=== PATIENT | female | born 1945 | race Caucasian/White ===

== ENCOUNTER 2019-05-07 11:45 | Observation (INO) | payer MEDICARE ==
[2019-05-07 12:52] LABS: Basophils % 0.7 % (0-1.3); Hematocrit 17.3 % (36.0-45.0); Lymphocytes % 13.4 % (15.3-44.8); MPV 8.2 fL (7.6-11.3); RBC Red Blood Cell Count 2.26 M/uL (3.86-4.86)
[2019-05-07 13:13] LABS: ALT/SGPT 17 U/L (12-78); AST/SGOT 10 U/L (15-37); Albumin 3.3 g/dL (3.4-5.0); Alkaline Phosphatase 104 U/L (45-117); BUN Blood Urea Nitrogen 21 mg/dL (7-18); Bicarbonate 24 mmol/L (21-32); Bilirubin Direct 0.1 mg/dL (0-0.2); Bilirubin Total 0.3 mg/dL (0.2-1.0); Glucose Level 151 mg/dL (74-106); Magnesium 1.7 mg/dL (1.8-2.4); NT PRO-BNP 273 pg/mL (<125); Potassium 3.9 mmol/L (3.5-5.1); Protein, Total 7.6 g/dL (6.4-8.2); Sodium Level 135 mmol/L (136-145); Troponin (Emerg Dept Use Only) < 0.02 ng/mL (0.0-0.045)
--- NOTE | 2019-05-07 13:18 | RAD REPORT ---
EXAM DESCRIPTION: RAD - Chest Single View - 05/07/2019 1:10 pm CLINICAL HISTORY: CHEST PAIN Chest pain. COMPARISON: Chest Pa And Lat (2 Views) dated 10/05/2017; CHEST PA AND LAT 2 VIEW dated 09/17/2007 FINDINGS: Portable technique limits examination quality. The lungs are emphysematous but grossly clear. The heart is mildly prominent in size. No displaced fr actures. IMPRESSION: No acute intrathoracic process suspected. Mild COPD.
[2019-05-07] MEDS ORDERED: MAGNESIUM SULFATE 1 gm IVPB 1 GM/100 ML BAG IV ONE (13:27)
[2019-05-07 13:41] LABS: RBC Red Blood Cell Count 2.21 M/uL (3.86-4.86)
[2019-05-07 13:57] LABS: Ferritin 3.9 ng/mL (8-388)
--- NOTE | 2019-05-07 14:25 | ER ---
Nurse's Notes [facility] Name: Barrett Bird Age: 73 yrs Sex: Female : 1945 Arrival Date: 05/07/2019 Time: 11:47 Bed 7 Private MD: Diagnosis: Iron deficiency anemia Presentation: 05/07 11:59 Presenting complaint: Patient states: SOB on exertion x 1 month ago. Pt denies pain. Pt aa5 appears pale in triage. Transition of care: patient was not received from another setting of care. Onset of symptoms was April 2019. Risk Assessment: Do you want to hurt yourself or someone else? Patient reports no desire to harm self or others. Initial Sepsis Screen: Does the patient meet any 2 criteria? No. Patient's initial sepsis screen is negative. Does the patient have a suspected source of infection? No. Patient's initial sepsis screen is negative. Care prior to arrival: None. 11:59 Method Of Arrival: Wheelchair aa5 11:59 Acuity: MICHELE 2 aa5 Triage Assessment: 12:11 General: Appears in no apparent distress. Respiratory: Reports shortness of breath at tw2 rest since for a month now Onset: The symptoms/episode began/occurred 1 month ago, the patient has mild shortness of breath. Historical: - Allergies: 12:00 Codeine; aa5 - PMHx: 12:00 "lazy valve"; Anxiety; Arthritis; COPD; Hyperlipidemia; Hypothyroidism; aa5 - PSHx: 12:00 Knee surgery; Hand Surgery; aa5 17:47 2 nodules removed- Right upper lung lobe removed; tw2 - Immunization history:: Adult Immunizations. - Ebola Screening: : No symptoms or risks identified at this time. - Social history:: Smoking status: Patient/guardian denies using tobacco, the patient reports quitting approximately 1.3 years ago. Screenin:03 Abuse screen: Denies threats or abuse. Nutritional screening: No deficits noted. tw2 Tuberculosis screening: No symptoms or risk factors identified. Fall Risk Secondary diagnosis (15 points). Assessment: 12:04 Pain: Denies pain. Cardiovascular: Rhythm is regular. Respiratory: Airway is patent tw2 Respiratory effort is even, unlabored, Breath sounds are clear bilaterally. 12:10 General: Appears in no apparent distress. obese, Behavior is calm, cooperative, tw2 appropriate for age. Neuro: Level of Consciousness is awake, alert, obeys commands, Oriented to person, place, time, situation. Cardiovascular: Heart tones S1 S2 Patient's skin is warm and dry. Respiratory: Airway is patent Respiratory effort is even, unlabored, Respiratory pattern is regular, tachypnea Breath sounds are clear bilaterally. GI: No signs and/or symptoms were reported involving the gastrointestinal system. Abdomen is round non-distended, obese, Bowel sounds present X 4 quads. : No signs and/or symptoms were reported regarding the genitourinary system. EENT: No signs and/or symptoms were reported regarding the EENT system. Derm: Skin is pale. Musculoskeletal: Range of motion: intact in all extremities. 12:11 Reassessment: provider at bedside at this time. tw2 12:38 Reassessment: Patient appears in no apparent distress at this time. No changes from tw2 previously documented assessment. Patient and/or family updated on plan of care and expected duration. Pain level reassessed. 13:33 Reassessment: Patient appears in no apparent distress at this time. No changes from tw2 previously documented assessment. Patient and/or family updated on plan of care and expected duration. Pain level reassessed. 14:45 Reassessment: Patient appears in no apparent distress at this time. No changes from tw2 previously documented assessment. Patient and/or family updated on plan of care and expected duration. Pain level reassessed. 15:45 Reassessment: Patient appears in no apparent distress at this time. No changes from tw2 previously documented assessment. Patient and/or family updated on plan of care and expected duration. Pain level reassessed. 15:50 Reassessment: SEE BLOOD TRANSFUSION RECORD in pts chart. tw2 16:33 Reassessment: Dr. Blanco hospitalist at bedside at this time. tw2 16:37 Reassessment: Patient appears in no apparent distress at this time. No changes from tw2 previously documented assessment. Patient and/or family updated on plan of care and expected duration. Pain level reassessed. 17:51 Reassessment: Patient appears in no apparent distress at this time. No changes from tw2 previously documented assessment. Patient and/or family updated on plan of care and expected duration. Pain level reassessed. 1 Unit of PRBC's completed at this time. report given to 2nd floor and order to transfuse 2nd Unit of PRBC's once pt is situated in floor room. Vital Signs: 12:00 BP 89 / 44; Pulse 79; Resp 18 S; Temp 97.6(TE); Pulse Ox 100% on R/A; Weight 89.81 kg aa5 (R); Height 5 ft. 5 in. (165.10 cm) (R); Pain 0/10; 12:38 BP 103 / 45; Pulse 80; Resp 20; Pulse Ox 100% on R/A; tw2 13:33 BP 98 / 85; Pulse 77; Resp 16; Pulse Ox 100% on R/A; tw2 14:45 BP 107 / 44; Pulse 74; Resp 17; Pulse Ox 100% on R/A; tw2 15:45 BP 109 / 59; Pulse 76; Resp 17; Pulse Ox 100% on R/A; tw2 16:37 BP 115 / 87; Pulse 79; Resp 17; Pulse Ox 100% on R/A; tw2 12:00 Body Mass Index 32.95 (89.81 kg, 165.10 cm) aa5 ED Course: 11:47 Patient arrived in ED. as 11:59 Triage completed. aa5 11:59 Arm band placed on. aa5 12:03 Mela Dallas, MADELINE is Primary Nurse. tw2 12:04 Bed in low position. Call light in reach. tw2 12:09 Gian Tan PA is PHCP. jr8 12:09 Lennox Marrero MD is Attending Physician. jr8 12:19 EKG done, by controls technician. reviewed by Gian PETERSON. at1 12:30 Inserted saline lock: 22 gauge in right antecubital area, using aseptic technique. tw2 ,using aseptic technique. per MADELINE Mead Blood collected. 13:10 XRAY Chest (1 view) In Process Unspecified. EDMS 13:24 Bb Add On Sent. tw2 13:24 TIBC Sent. tw2 13:24 Iron Level Sent. tw2 14:22 Donald Blanco is Hospitalizing Provider. jr8 15:46 Urine collected: clean catch specimen, cloudy, petrona colored. jb1 17:47 No provider procedures requiring assistance completed. Patient admitted, IV remains in tw2 place. Administered Medications: 13:31 Drug: Magnesium Sulfate 1 grams Route: IVPB; Infused Over: 1 hrs; Site: right tw2 antecubital; 14:32 Follow up: Response: No adverse reaction; IV Status: Completed infusion tw2 15:36 Drug: Tylenol 650 mg Route: PO; tw2 15:38 Follow up: Response: No adverse reaction tw2 15:37 Drug: Benadryl 12.5 mg Route: IVP; Site: right antecubital; tw2 15:38 Follow up: Response: No adverse reaction tw2 Outcome: 14:24 Decision to Hospitalize by Provider. jr8 17:47 Condition: stable tw2 17:47 Instructed on the need for admit. 18:10 Admitted to Med/surg accompanied by tech, via wheelchair, room 215, with chart, Report tw2 called to MADELINE Wan 18:10 Patient left the ED. tw2 Signatures: Dispatcher [employer] EDMS Albert Horan jb1 Claudette Hogan Audri, RN RN aa5 Gian Tan PA PA jr8 Niurka Nichole, staff occupational therapist EKG Tat1 Mela Dallas RN RN tw2 Corrections: (The following items were deleted from the chart) 12:04 11:59 Acuity: MICHELE 3 aa5 aa5 17:47 12:00 PSHx: 2 nodules removed- Rupper lung lobe removed; aa5 tw2
--- NOTE | 2019-05-07 14:25 | EDPHYS ---
Physician Documentation [facility] Name: Barrett Bird Age: 73 yrs Sex: Female : 1945 Arrival Date: 05/07/2019 Time: 11:47 Bed 7 Private MD: BOLIVAR Physician Lennox Marrero HPI: 05/07 12:46 This 73 yrs old Female presents to ER via Wheelchair with complaints of jr8 Shortness Of Breath - w/exertion. 12:46 The patient has shortness of breath with light activity. Onset: The symptoms/episode jr8 began/occurred gradually, 3 week(s) ago. Duration: The symptoms are intermittent. The patient's shortness of breath is aggravated by exertion, is alleviated by rest. Associated signs and symptoms: The patient has no apparent associated signs or symptoms. Severity of symptoms: At their worst the symptoms were mild in the emergency department the symptoms are unchanged. The patient has not experienced similar symptoms in the past. The patient has not recently seen a physician. 13:17 Patient stated that since she had a cold about 3 weeks ago. Started to have exertional jr8 shortness of breath with dizziness only. At rest feels completely fine. Denies any other symptoms. Came to ED today because she thought it was going to go away but never did . Historical: - Allergies: 12:00 Codeine; aa5 - PMHx: 12:00 "lazy valve"; Anxiety; Arthritis; COPD; Hyperlipidemia; Hypothyroidism; aa5 - PSHx: 12:00 Knee surgery; Hand Surgery; aa5 17:47 2 nodules removed- Right upper lung lobe removed; tw2 - Immunization history:: Adult Immunizations. - Ebola Screening: : No symptoms or risks identified at this time. - Social history:: Smoking status: Patient/guardian denies using tobacco, the patient reports quitting approximately 1.3 years ago. ROS: 13:17 Eyes: Negative for injury, pain, redness, and discharge, ENT: Negative for injury, jr8 pain, and discharge, Neck: Negative for injury, pain, and swelling, Cardiovascular: Negative for chest pain, palpitations, and edema, Abdomen/GI: Negative for abdominal pain, nausea, vomiting, diarrhea, and constipation, Back: Negative for injury and pain, MS/Extremity: Negative for injury and deformity, Skin: Negative for injury, rash, and discoloration, Neuro: Negative for headache, weakness, numbness, tingling, and seizure. 13:17 Respiratory: Positive for dyspnea on exertion, Negative for cough, hemoptysis, orthopnea, pleurisy, shortness of breath, sputum production, wheezing. Exam: 13:17 Eyes: Pupils equal round and reactive to light, extra-ocular motions intact. Lids and jr8 lashes normal. Conjunctiva and sclera are non-icteric and not injected. Cornea within normal limits. Periorbital areas with no swelling, redness, or edema. ENT: Nares patent. No nasal discharge, no septal abnormalities noted. Tympanic membranes are normal and external auditory canals are clear. Oropharynx with no redness, swelling, or masses, exudates, or evidence of obstruction, uvula midline. Mucous membranes moist. Neck: Trachea midline, no thyromegaly or masses palpated, and no cervical lymphadenopathy. Supple, full range of motion without nuchal rigidity, or vertebral point tenderness. No Meningismus. Respiratory: Lungs have equal breath sounds bilaterally, clear to auscultation and percussion. No rales, rhonchi or wheezes noted. No increased work of breathing, no retractions or nasal flaring. Abdomen/GI: Soft, non-tender, with normal bowel sounds. No distension or tympany. No guarding or rebound. No evidence of tenderness throughout. Back: No spinal tenderness. No costovertebral tenderness. Full range of motion. Skin: Warm, dry with normal turgor. Normal color with no rashes, no lesions, and no evidence of cellulitis. MS/ Extremity: Pulses equal, no cyanosis. Neurovascular intact. Full, normal range of motion. Neuro: Awake and alert, GCS 15, oriented to person, place, time, and situation. Cranial nerves II-XII grossly intact. Motor strength 5/5 in all extremities. Sensory grossly intact. Cerebellar exam normal. Normal gait. 13:17 Cardiovascular: Rate: normal, Rhythm: regular, Pulses: Pulses are 2+ in right radial artery and left radial artery. Heart sounds: murmur, systolic, grade 5 over 6, heard in the aortic area, Edema: is not appreciated, JVD: is not appreciated. Vital Signs: 12:00 BP 89 / 44; Pulse 79; Resp 18 S; Temp 97.6(TE); Pulse Ox 100% on R/A; Weight 89.81 kg aa5 (R); Height 5 ft. 5 in. (165.10 cm) (R); Pain 0/10; 12:38 BP 103 / 45; Pulse 80; Resp 20; Pulse Ox 100% on R/A; tw2 13:33 BP 98 / 85; Pulse 77; Resp 16; Pulse Ox 100% on R/A; tw2 14:45 BP 107 / 44; Pulse 74; Resp 17; Pulse Ox 100% on R/A; tw2 15:45 BP 109 / 59; Pulse 76; Resp 17; Pulse Ox 100% on R/A; tw2 16:37 BP 115 / 87; Pulse 79; Resp 17; Pulse Ox 100% on R/A; tw2 12:00 Body Mass Index 32.95 (89.81 kg, 165.10 cm) aa5 MDM: 12:15 Patient medically screened. 8 14:21 Data reviewed: vital signs, nurses notes, lab test result(s), radiologic studies, plain jr8 films, ultrasound. Data interpreted: Pulse oximetry: on room air is 100 %. Interpretation: normal. Counseling: I had a detailed discussion with the patient and/or guardian regarding: the historical points, exam findings, and any diagnostic results supporting the discharge/admit diagnosis, lab results, radiology results, the need for further work-up and treatment in the hospital. Physician consultation: Donald Blanco was called at 14:22, was contacted at 14:22, regarding admission, to the telemetry unit. consult, patient's condition, and will see patient. 05/07 12:27 Order name: Basic Metabolic Panel; Complete Time: 13:14 [facility] 05/07 12:27 Order name: CBC with Diff [facility] 05/07 12:27 Order name: LFT's; Complete Time: 13:14 [facility] 05/07 12:27 Order name: Magnesium; Complete Time: 13:14 [facility] 05/07 12:27 Order name: NT PRO-BNP; Complete Time: 13:14 [facility] 05/07 12:27 Order name: PT-INR; Complete Time: 13:31 [facility] 05/07 12:27 Order name: Troponin (emerg Dept Use Only); Complete Time: 13:14 [facility] 05/07 13:14 Order name: TS jr8 05/07 13:15 Order name: Iron Level; Complete Time: 14:15 [facility] 05/07 13:15 Order name: TIBC; Complete Time: 14:15 [facility] 05/07 13:15 Order name: Retic Count; Complete Time: 14:15 [facility] 05/07 13:17 Order name: Bb Add On gm 05/07 13:25 Order name: Occult Blood--Ancillary; Complete Time: 14:26 gm 05/07 12:27 Order name: XRAY Chest (1 view); Complete Time: 13:20 [facility] 05/07 12:27 Order name: EKG; Complete Time: 12:27 [facility] 05/07 12:27 Order name: Cardiac monitoring; Complete Time: 12:38 [facility] 05/07 12:27 Order name: EKG - Nurse/Tech; Complete Time: 12:38 [facility] 05/07 12:27 Order name: IV Saline Lock; Complete Time: 12:44 [facility] 05/07 12:27 Order name: Labs collected and sent; Complete Time: 12:44 [facility] 05/07 12:27 Order name: O2 Per Protocol; Complete Time: 12:38 [facility] 05/07 12:27 Order name: O2 Sat Monitoring; Complete Time: 12:38 [facility] 05/07 12:27 Order name: Echo w/ Doppler [facility] 05/07 14:03 Order name: Packed RBC Leukored [facility] 05/07 16:02 Order name: Urine Dipstick--Ancillary (enter results); Complete Time: 16:39 gm 05/07 16:10 Order name: Transfuse; Complete Time: 16:10 tw2 Administered Medications: 13:31 Drug: Magnesium Sulfate 1 grams Route: IVPB; Infused Over: 1 hrs; Site: right tw2 antecubital; 14:32 Follow up: Response: No adverse reaction; IV Status: Completed infusion tw2 15:36 Drug: Tylenol 650 mg Route: PO; tw2 15:38 Follow up: Response: No adverse reaction tw2 15:37 Drug: Benadryl 12.5 mg Route: IVP; Site: right antecubital; tw2 15:38 Follow up: Response: No adverse reaction tw2 Disposition: 05/08 07:53 Co-signature as Attending Physician, Lennox Marrero MD I agree with the assessment and [facility] plan of care. Disposition: 05/07/19 14:24 Hospitalization ordered by Donald Blanco for Observation. Preliminary diagnosis is Iron deficiency anemia. - Bed requested for Telemetry/MedSurg (observation). - Status is Observation. tw2 - Condition is Stable. - Problem is new. - Symptoms have improved. UTI on Admission? No Signatures: Dispatcher [employer] EDMN Lennox Marrero MD MD cha Calderon, Audri, RN RN aa5 Gian Tan PA PA jr8 Mela Dallas RN RN tw2 Kathy Nesbitt Corrections: (The following items were deleted from the chart) 05/07 13:18 13:16 FERRITIN+C.LAB.BRZ ordered. [facility] 17:38 14:24 Hospitalization Ordered by Donald Blanco for Observation. Preliminary diagnosis gm is Iron deficiency anemia. Bed requested for Telemetry/MedSurg (observation). Status is Observation. Condition is Stable. Problem is new. Symptoms have improved. UTI on Admission? No. jr8 17:47 12:00 PSHx: 2 nodules removed- Rupper lung lobe removed; aa5 tw2 18:10 17:38 05/07/2019 14:24 Hospitalization Ordered by Donald Blanco for Observation. tw2 Preliminary diagnosis is Iron deficiency anemia. Bed requested for Telemetry/MedSurg (observation). Status is Observation. Condition is Stable. Problem is new. Symptoms have improved. UTI on Admission? No. gm
[2019-05-07] MEDS ORDERED: DIPHENHYDRAMINE 50 MG/ML VIAL ONE (15:24)
[2019-05-07] MEDS ORDERED: ACETAMINOPHEN 325 MG TABLET ONE (15:24)
[2019-05-07] MEDS ORDERED: NA CHLORIDE 0.9% 500 ML ONE (15:37)
[2019-05-07 16:25] LABS: Urine Blood NEGATIVE (NEG); Urine Glucose NEGATIVE (NEG); Urine Protein NEGATIVE (NEG); Urine Specific Gravity 1.015 (1.005-1.030); Urine pH 5.5 (5.0-7.0)
--- NOTE | 2019-05-07 16:58 | P.HP ---
Certification for Inpatient Patient admitted to: Observation With expected LOS: <2 Midnights Practitioner: I am a practitioner with admitting privileges, knowledge of patient current condition, hospital course, and medical plan of care. Services: Services provided to patient in accordance with Admission requirements found in Title 42 Section 412.3 of the Code of Federal Regulations Patient History Date of Service: 05/07/19 Reason for admission: Severe anemia History of Present Illness: 73-year-old woman with a history congenital murmur, prior history of lung cancer status post lung resection presented emergency department with a complaint of easy fatigability. CBC done in the ED revealed severe anemia with a hemoglobin of 5.7 and microcytosis. Her iron level was also low. Patient denied any GI bleed or melena or hematemesis or vaginal bleed. She has undergone total hysterectomy. Patient started on 1 unit PRBC transfusion and admitted for further management of symptomatic anemia. Allergies Codeine Allergy (Uncoded 07/18/17 13:06) Unknown Home Medications: Albuterol Sulfate [Albuterol Sulfate 0.083% Neb Soln] 2.5 mg IH TID 07/18/17 Amiloride/Hydrochlorothiazide [Amiloride HCl-Hctz 5-50 mg Tab] 1 each PO DAILY 07/18/17 Aspirin [Aspirin EC 81 MG] 81 mg PO DAILY 07/18/17 Biotin 5,000 mcg PO DAILY 07/18/17 Butalb/Acetaminophen/Caffeine [Esgic 50-325-40 mg Tablet] 1 each PO DAILY Celecoxib [Celebrex] 200 mg PO TID 07/18/17 Cyclobenzaprine [Flexeril] 10 mg PO BID PRN 07/18/17 Diphenhydramine [Benadryl Tab/Cap] 25 mg PO BEDTIME 07/18/17 Docosahexanoic AC/Epa [Fish Oil 1,000 MG CAP] 1,000 mg PO BID 07/18/17 Estradiol [Estrace] 1 mg PO DAILY 07/18/17 Ferrous Sulfate [Iron] 325 mg PO DAILY 07/18/17 Fluticasone [Flonase 50mcg Nasal [place]] 2 sprays NS DAILY 07/18/17 Gabapentin [Gralise] 150 mg PO BID 07/18/17 Levothyroxine Sodium [Synthroid] 175 mcg PO DAILY 07/18/17 Loratadine [Claritin] 10 mg PO DAILY 07/18/17 Metoprolol Succinate [Toprol Xl] 100 mg PO [id number] 07/18/17 Psyllium [Metamucil] 1 pkt PO DAILY 07/18/17 Simvastatin [Zocor] 10 mg PO DAILY 07/18/17 Tramadol HCl [Tramadol HCl ER] 300 mg PO DAILY 07/18/17 Vitamin E 1,000 unit PO DAILY 07/18/17 diazePAM [Valium] 5 mg PO QID 07/18/17 - Past Medical/Surgical History -: Remote history of lung cancer status post resection -: Heart murmur -: History of Laparotomy -: MARYLOU -: Lung resection - Family History Family History: Reviewed- Non-Contributory - Social History Smoking Status: Never smoker Alcohol use: No CD- Drugs: No Place of Residence: Home Review of Systems Other: General: No fever, no malaise, no unintentional weight loss. Eyes: No eye discharge, Respiratory: No cough, no shortness of breath. CVS: No chest pain, no palpitation, no lightheadedness. GI: No abdominal pain, no nausea no vomit, no constipation, no diarrhea. Genitourinary: No dysuria, no urinary frequency, no incontinence, no hematuria. Musculoskeletal: No joint pains, or joint swelling, no gait instability. Neurology: No headache, no asymmetric, weakness, no problem with swallowing. Except as documented, all other systems reviewed and negative. Physical Examination - Physical Exam General: Alert, In no apparent distress, Oriented x3 HEENT: Normocephalic, PERRLA, Mucous membr. moist/pink Neck: Supple, JVD not distended, No Thyromegaly Respiratory: Clear to auscultation bilaterally, Normal air movement Cardiovascular: No edema, Normal pulses, Regular rate/rhythm, Normal S1 S2, No murmurs Capillary refill: <2 Seconds Gastrointestinal: Normal bowel sounds, Soft and benign, Non-distended, No tenderness Musculoskeletal: No clubbing, No swelling Integumentary: No rashes, No breakdown Neurological: Normal strength at 5/5 x4 extr, Cranial nerves 3-12 intact, Normal affect Lymphatics: No axilla or inguinal lymphadenopathy - Studies Laboratory Data (last 24 hrs) 05/07/19 12:40: PT 11.8, INR 1.00 05/07/19 12:40: WBC 7.8, Hgb 5.7 L*, Hct 17.3 L*, Plt Count 259 05/07/19 12:40: Sodium 135 L, Potassium 3.9, BUN 21 H, Creatinine 0.93, Glucose 151 H, Magnesium 1.7 L, Total Bilirubin 0.3, AST 10 L, ALT 17, Alkaline Phosphatase 104 Microbiology Data (last 24 hrs): 05/07/19 13:25 Stool Occult Blood - Final Imagings Data: Chest x-ray: No acute intrathoracic process. Assessment and Plan - Problems (Diagnosis) (1) Symptomatic anemia Current Visit: Yes Status: Acute (2) Iron deficiency Current Visit: Yes Status: Acute - Plan Suspect chronic anemia 2nd to chronic blood loss. Placed under observation. 2 units PRBC transfusion to keep her more remained greater than 7. IV iron therapy followed by oral iron therapy as outpatient. Check stool for occult blood. Avoid NSAIDs and aspirin. Discharge Plan: Home - Advance Directives Does patient have a Living Will: No Does patient have a Durable POA for Healthcare: No
--- NOTE | 2019-05-07 18:26 | EKG ---
Test Date: 2019-05-07 Test Time: 12:13:36 Traffic Rate Clerk: ERICKSON MEASUREMENT RESULTS: Intervals: Rate: 83 MS: 160 QRSD: 90 QT: 384 QTc: 451 [place]: P: 40 MS: 160 QRS: 35 T: 69 INTERPRETIVE STATEMENTS: Normal sinus rhythm Normal ECG Compared to ECG 03/27/2013 15:25:24 Myocardial infarct finding no longer present Electronically Signed On 05-07-19 18:24:52 CDT by Philip Manning
[2019-05-07] MEDS ORDERED: ONDANSETRON 4 MG/2 ML VIAL IV PRN (18:28)
[2019-05-07] MEDS ORDERED: NA CHLORIDE 0.9% 250 ML IV SCH (18:28)
[2019-05-07 19:22] LABS: Anisocytosis 2+; Blood Morphology Comment NOTED (NOT SEEN); Hypochromasia 1+; Platelet Estimate ADEQ; Polychromasia SLIGHT; Urine White Blood Cell Casts OK
[2019-05-07] MEDS: NA CHLORIDE 0.9% 1,000 ML IV SCH (19:23)
[2019-05-07 20:00] VITALS: BMI 31.2
[2019-05-07 20:49] LABS: Urine Appearance CLEAR; Urine Bilirubin NEGATIVE (NEG); Urine Blood NEGATIVE (NEG); Urine Color YELLOW; Urine Glucose NEGATIVE (NEG); Urine Protein NEGATIVE (NEG); Urine Urobilinogen 0.2 mg/dL (0.2-1.0); Urine pH 5.5 (5.0-7.0)
[2019-05-07 21:15] LABS: Urine Microscopic Reflex NO UMIC
[2019-05-08 03:43] LABS: Absolute Lymphocytes (CBC) 1.5 K/uL (0.7-4.9); Basophils % 2.4 % (0-1.3); Hematocrit 22.9 % (36.0-45.0); Lymphocytes % 17.9 % (15.3-44.8); MPV 8.3 fL (7.6-11.3); RBC Red Blood Cell Count 2.82 M/uL (3.86-4.86)
[2019-05-08 04:01] LABS: Potassium 3.9 mmol/L (3.5-5.1)
[2019-05-08] MEDS: NA CHLORIDE 0.9% 1,000 ML IV SCH (04:28)
[2019-05-08 05:58] VITALS: O2SAT 98
--- NOTE | 2019-05-08 08:20 | ECHO ---
HEIGHT: 5 ft 5 in WEIGHT: 188 lb 0 oz DATE OF STUDY: 05/07/[address]: Lennox Marrero MD 2-DIMENSIONAL: YES M.MODE: YES DOPPLER: YES COLOR FLOW: YES TDS: NO PORTABLE: NO DEFINITY: NO BUBBLE STUDY: NO DIAGNOSIS: SHORTNESS OF BREATH/ HIGH GRADE MURMUR CARDIAC HISTORY: CATHERIZATION: NO SURGERY: NO PROSTHETIC VALVE: NO PACEMAKER: NO MEASUREMENTS (cm) DIASTOLIC (NORMALS) SYSTOLIC (NORMALS) IVSd 1.3 (0.6-1.2) LA Diam 3.6 (1.9-4.0) LVEF 68% LVIDd 3.4 (3.5-5.7) LVIDs 2.1 (2.0-3.5) %FS 37% LVPWd 1.2 (0.6-1.2) Ao Diam 3.0 (2.0-3.7) 2 DIMENSIONAL ASSESSMENT: RIGHT ATRIUM: NORMAL LEFT ATRIUM: NORMAL RIGHT VENTRICLE: NORMAL LEFT VENTRICLE: LEFT VENTRICULAR HYPERTROPHY TRICUSPID VALVE: NORMAL MITRAL VALVE: NORMAL PULMONIC VALVE: NORMAL AORTIC VALVE: STENOSIS PERICARDIAL EFFUSION: NONE AORTIC ROOT: NORMAL LEFT VENTRICULAR WALL MOTION: NORMAL. DOPPLER/COLOR FLOW: MODERATE AORTIC STENOSIS. PEAK/MEAN GRADIENT 48/28mmHg. ESTIMATED AORTIC VALVE AREA 1.0 CENTIMETERS SQUARED. MILD AORTIC REGURGITATION. COMMENTS: NORMAL LEFT VENTRICULAR EJECTION FRACTION. LEFT VENTRICULAR HYPERTROPHY. MODERATE AORTIC STENOSIS. MILD AORTIC REGURGITATION. TECHNOLOGIST: LAKESHA ASHLEY
[2019-05-08] MEDS ORDERED: DIPHENHYDRAMINE 25 MG TAB/CAP PO PRN (08:49)
[2019-05-08] MEDS ORDERED: AMILORIDE PO SCH (09:00)
[2019-05-08] MEDS ORDERED: FLUTICASONE 50MCG NASAL SPRAY NAS SCH (09:00)
[2019-05-08] MEDS ORDERED: DIAZEPAM 5 MG TABLET PO SCH (09:00)
[2019-05-08] MEDS ORDERED: HOME MED 1 EA UNK (Levothyroxine Sodium [Synthroid] 175 MCG) PO SCH (09:00)
[2019-05-08] MEDS ORDERED: APREMILAST 30 MG PO SCH (09:00)
[2019-05-08] MEDS ORDERED: HOME MED 1 EA UNK (Vitamin E [Vitamin E] 1,000 UNIT) PO SCH (09:00)
[2019-05-08] MEDS ORDERED: ASPIRIN EC 81 MG TAB PO SCH (09:00)
[2019-05-08] MEDS ORDERED: TRAMADOL HCL 300 MG PO SCH (09:00)
[2019-05-08] MEDS ORDERED: [UNRECOGNIZED DRUG - OTHER] PO SCH (09:00)
[2019-05-08] MEDS ORDERED: PSYLLIUM 1 PKT PO SCH (09:00)
[2019-05-08] MEDS ORDERED: BIOTIN 5000 MCG PO SCH (09:00)
[2019-05-08] MEDS ORDERED: CYCLOBENZAPRINE 10 MG TAB PO SCH (09:00)
[2019-05-08] MEDS ORDERED: LORATADINE 10 MG TAB PO SCH (09:00)
[2019-05-08] MEDS ORDERED: HYDROCHLOROTHIAZIDE PO SCH (09:00)
[2019-05-08] MEDS ORDERED: SOD FERRIC GLUC COMPLX/SUCROSE 250 MG in NA CHLORIDE 0.9% 250 ML IV SCH (09:00)
[2019-05-08] MEDS ORDERED: POTASSIUM CL SA 10 MEQ TAB PO ONE (09:00)
[2019-05-08] MEDS ORDERED: SIMVASTATIN 10 MG PO SCH (09:00)
--- NOTE | 2019-05-08 11:00 | P.DS ---
Admission Date: 05/07/19 Discharge Date: 05/08/19 Disposition: ROUTINE DISCHARGE Discharge Condition: GOOD Reason for Admission: Severe anemia Consultations: None - Problems (1) Symptomatic anemia Current Visit: Yes Status: Acute (2) Iron deficiency Current Visit: Yes Status: Acute Brief History of Present Illness: 73-year-old woman with a history congenital murmur, prior history of lung cancer status post lung resection presented to the emergency department with a complaint of easy fatigability. CBC done in the ED revealed severe anemia with a hemoglobin of 5.7 and microcytosis. Her iron level was also low. Patient denied any GI bleed or melena or hematemesis or vaginal bleed. She has undergone total hysterectomy. Patient was started on 1 unit PRBC transfusion and admitted for further management of symptomatic anemia. Hospital Course: Patient admitted to the medical floor. She received 2 units of PRBC transfusion. Her hemoglobin was up to 7.4. She did not have any bowel movement provide stool for fecal occult blood test. She was given a dose of IV iron. She stated she feels much better. Case discussed with Dr. Rose, patient' s rn manager for plans to evaluate patient in his office either today or tomorrow. Patient is on oral iron therapy which she has been encouraged to continue. I also prescribed folic acid. She was informed to stop taking aspirin and Celecoxib until she sees her rn manager. Vital Signs/Physical Exam: Temp Pulse Resp BP Pulse Ox 97.5 F 84 18 129/63 99 05/08/19 08:00 05/08/19 08:00 05/08/19 08:00 05/08/19 08:00 05/08/19 08:00 General: Alert, In no apparent distress, Oriented x3 HEENT: Mucous membr. moist/pink Neck: Supple, JVD not distended Respiratory: Clear to auscultation bilaterally, Normal air movement Cardiovascular: No edema, Normal pulses, Regular rate/rhythm, Normal S1 S2, No murmurs Capillary refill: <2 Seconds Gastrointestinal: Normal bowel sounds, Soft and benign, Non-distended, No tenderness Musculoskeletal: No swelling Integumentary: No rashes Neurological: Normal strength at 5/5 x4 extr Laboratory Data at Discharge: WBC 8.2 K/uL (4.3-10.9) 05/08/19 03:20 Hgb 7.4 g/dL (12.0-15.0) L* 05/08/19 03:20 Hct 22.9 % (36.0-45.0) L D 05/08/19 03:20 Plt Count 222 K/uL (152-406) 05/08/19 03:20 PT 11.8 SECONDS (9.5-12.5) 05/07/19 12:40 INR 1.00 05/07/19 12:40 Sodium 136 mmol/L (136-145) 05/08/19 03:20 Potassium 3.9 mmol/L (3.5-5.1) 05/08/19 03:20 BUN 21 mg/dL (7-18) H 05/08/19 03:20 Creatinine 0.78 mg/dL (0.55-1.3) 05/08/19 03:20 Glucose 111 mg/dL (74-106) H 05/08/19 03:20 Phosphorus 3.0 mg/dL (2.5-4.9) 05/08/19 03:20 Magnesium 2.0 mg/dL (1.8-2.4) 05/08/19 03:20 Total Bilirubin 0.3 mg/dL (0.2-1.0) 05/07/19 12:40 AST 10 U/L (15-37) L 05/07/19 12:40 ALT 17 U/L (12-78) 05/07/19 12:40 Alkaline Phosphatase 104 U/L (45-117) 05/07/19 12:40 Home Medications: Amiloride/Hydrochlorothiazide [Amiloride HCl-Hctz 5-50 mg Tab] 1 each PO DAILY 07/18/17 Biotin 5,000 mcg PO DAILY 07/18/17 Butalb/Acetaminophen/Caffeine [Esgic 50-325-40 mg Tablet] 1 each PO BEDTIME Cyclobenzaprine [Flexeril*] 10 mg PO BID 07/18/17 Diphenhydramine [Benadryl*] 25 mg PO BEDTIME PRN 07/18/17 Docosahexanoic AC/Epa [Fish Oil 1,000 MG*] 1,000 mg PO DAILY AT SUPPER 07/18/17 Estradiol [Estrace] 1 mg PO DAILY AT SUPPER 07/18/17 Ferrous Sulfate [Iron] 325 mg PO TID 07/18/17 Fluticasone [Flonase 50MCG Nasal [place]*] 2 sprays NS DAILY 07/18/17 Levothyroxine Sodium [Synthroid] 175 mcg PO DAILY 07/18/17 Loratadine [Claritin*] 10 mg PO DAILY 07/18/17 Metoprolol Succinate [Toprol Xl*] 100 mg PO [id number] 07/18/17 Psyllium [Metamucil (Hydrocil)*] 1 pkt PO DAILY 07/18/17 Simvastatin [Zocor] 10 mg PO TID 07/18/17 Tramadol HCl [Tramadol HCl ER] 300 mg PO DAILY 07/18/17 Vitamin E 1,000 unit PO DAILY 07/18/17 diazePAM [Valium*] 5 mg PO QID 07/18/17 Apremilast [Otezla] 30 mg PO BID 05/07/19 Folic Acid 0.4 mg PO DAILY 30 Days #30 tablet 05/08/19 New Medications: Folic Acid 0.4 mg PO DAILY 30 Days #30 tablet Diet: AHA Activity: Ad tee Followup: Bentley Rose MD [ACTIVE - CAN ADMIT] - 1-2 Days Time spent managing pt's care (in minutes): 25
[2019-05-08 15:16] VITALS: BP 109/53; TEMP 98
[2019-05-08] MEDS ORDERED: ESTRADIOL 1 MG PO SCH (17:00)
[2019-05-08] MEDS ORDERED: DOCOSAHEXANOIC AC/EPA 1000 MG PO SCH (17:00)
[2019-05-08] MEDS ORDERED: ACETAMIN/CAFFEINE/BUTALB TAB PO SCH (21:00)
[2019-05-09] MEDS ORDERED: METOPROLOL XL 100 MG TAB PO SCH (06:00)
[2019-05-09] MEDS ORDERED: LEVOTHYROXINE SOD 0.1 MG TAB PO SCH (06:30)
[2019-05-09] MEDS ORDERED: LEVOTHYROXINE SOD 0.075 MG TAB PO SCH (06:30)
== END 2019-05-08 12:56 | disposition home or self-care (01) ==
LOC: ER 11:45 → ERHOLD 17:02 → 2ND 18:07
PROVIDERS: ADMIT Internal Medicine; ATTEND Internal Medicine
DX: D50.9 Iron deficiency anemia, unspecified (principal); Z85.118 Personal history of other malignant neoplasm of bronchus and lung
CPT/HCPCS: 96365; 36430; 93005; 93306; 85025 ×2; 80048 ×2; 36415; 86900; 83735 ×2; 86850; 84100; 85610; 85044; 86901; 80076; 82272; 81003 ×2; 84484; 82728; 83540; 83880; 84466; 71045; 96375; 99285; J1200; J3475; J2916; G0378 ×2; P9016 ×2; J7030 ×3; J7040

== ENCOUNTER 2019-05-30 13:08 | Observation (INO) | payer MEDICARE ==
--- NOTE | 2019-05-30 13:59 | RAD REPORT ---
EXAM DESCRIPTION: Claire Single View05/30/2019 1:50 pm CLINICAL HISTORY: Shortness of breath COMPARISON: May 07, 2019 FINDINGS: Lungs are mildly hyperaerated. The lungs appear clear of acute infiltrate. The heart is normal size IMPRESSION: No acute abnormalities displayed
[2019-05-30 15:15] LABS: Absolute Lymphocytes (CBC) 1.8 K/uL (0.7-4.9); Basophils % 1.2 % (0-1.3); Hematocrit 18.7 % (36.0-45.0); Lymphocytes % 13.6 % (15.3-44.8); MPV 8.4 fL (7.6-11.3); RBC Red Blood Cell Count 2.27 M/uL (3.86-4.86)
[2019-05-30 15:31] LABS: Potassium 4.2 mmol/L (3.5-5.1)
[2019-05-30 15:34] LABS: Anisocytosis 1+; Blood Morphology Comment NOTED (NOT SEEN); Platelet Estimate INCR; Platelets, Giant PRESENT; Urine White Blood Cell Casts OK
--- NOTE | 2019-05-30 15:47 | EKG ---
Test Date: 2019-05-30 Test Time: 13:46:04 Nonprofit Director: JIM MEASUREMENT RESULTS: Intervals: Rate: 85 DE: 148 QRSD: 94 QT: 398 QTc: 473 [place]: P: 32 DE: 148 QRS: 24 T: 64 INTERPRETIVE STATEMENTS: Normal sinus rhythm Normal ECG Compared to ECG 05/07/2019 12:13:36 No significant changes Electronically Signed On 05-30-19 15:46:46 CDT by Philip Manning
--- NOTE | 2019-05-30 16:05 | ER ---
Nurse's Notes [facility] Name: Barrett Bird Age: 73 yrs Sex: Female : 1945 Arrival Date: 05/30/2019 Time: 13:10 Bed 8 Private MD: Clark Carey E Diagnosis: Dyspnea, unspecified;Symptomatic anemia;Iron deficiency anemia Presentation: 05/30 13:16 Presenting complaint: Patient states: I have MOLLY and a few weeks ago needed a la1 transfusion. I feel that way again now. Transition of care: patient was not received from another setting of care. Onset of symptoms was May 30, 2019. Risk Assessment: Do you want to hurt yourself or someone else? Patient reports no desire to harm self or others. Initial Sepsis Screen: Does the patient meet any 2 criteria? No. Patient's initial sepsis screen is negative. Does the patient have a suspected source of infection? No. Patient's initial sepsis screen is negative. Care prior to arrival: None. 13:16 Method Of Arrival: Wheelchair la1 13:16 Acuity: MICHELE 3 la1 Historical: - Allergies: 13:17 Codeine; la1 13:17 GABAPENTIN; la1 13:17 Iodinated Contrast Media - IV Dye; la1 - PMHx: 13:17 "lazy valve"; Anxiety; Arthritis; COPD; Hyperlipidemia; Hypothyroidism; la1 - Immunization history:: Adult Immunizations up to date. - Social history:: Smoking status: Patient/guardian denies using tobacco. - Ebola Screening: : No symptoms or risks identified at this time. - Family history:: not pertinent. - Hospitalizations: : No recent hospitalization is reported. Screenin:30 Abuse screen: Denies threats or abuse. Denies injuries from another. Nutritional sg screening: No deficits noted. Tuberculosis screening: No symptoms or risk factors identified. Never had TB. Fall Risk None identified. Assessment: 13:30 General: Appears in no apparent distress. well groomed, well developed, well nourished, sg Behavior is calm, cooperative, appropriate for age. Pain: Denies pain. Neuro: Level of Consciousness is awake, alert, obeys commands, Oriented to person, place, time, Moves all extremities. Gait is steady, Speech is normal, Facial symmetry appears normal. Cardiovascular: Patient's skin is warm and dry. Chest pain is denied. Cardiovascular: Heart tones S1 S2. Respiratory: Airway is patent Respiratory effort is even, unlabored, Respiratory pattern is regular, symmetrical. GI: Abdomen is flat, non-distended. : No signs and/or symptoms were reported regarding the genitourinary system. EENT: No signs and/or symptoms were reported regarding the EENT system. Derm: Bruising that is brown, green, yellow, on right arm and left arm Reports bruising that has occurred for several years. Musculoskeletal: Circulation, motion, and sensation intact. Range of motion: intact in all extremities, Swelling absent. 15:20 Reassessment: Patient appears in no apparent distress at this time. "my stomach says it sg is getting to be that time, time to eat." pt instructed to remain NPO until notified, pt states understanding. 16:30 Reassessment: Patient appears in no apparent distress at this time. No changes from 7 previously documented assessment. Patient and/or family updated on plan of care and expected duration. Pain level reassessed. Patient is alert, oriented x 3, equal unlabored respirations, skin warm/dry/pink. 17:30 Reassessment: Patient appears in no apparent distress at this time. Patient and/or jl7 family updated on plan of care and expected duration. Pain level reassessed. Patient is alert, oriented x 3, equal unlabored respirations, skin warm/dry/pink. 18:30 Reassessment: Patient appears in no apparent distress at this time. No changes from 7 previously documented assessment. Patient and/or family updated on plan of care and expected duration. Pain level reassessed. Patient is alert, oriented x 3, equal unlabored respirations, skin warm/dry/pink. 19:15 Reassessment: Patient appears in no apparent distress at this time. Neuro: Level of lp1 Consciousness is awake, alert, obeys commands, Oriented to person, place, time, situation. Cardiovascular: Patient's skin is warm and dry. Respiratory: Respiratory effort is even. Derm: Skin is intact, Skin is dry, Skin is pale. Musculoskeletal: No deficits noted. 05/31 16:30 Respiratory: mg2 Vital Signs: 05/30 13:18 BP 100 / 50; Pulse 86; Resp 16; Pulse Ox 98% on R/A; la1 16:30 BP 126 / 72; Pulse 82; Resp 18; Temp 97.9; Pulse Ox 99% on R/A; Pain 0/10; sg 19:15 BP 125 / 70; Pulse 87; Resp 20; Temp 98(O); Pulse Ox 100% on R/A; Pain 0/10; lp1 ED Course: 13:10 Patient arrived in ED. as 13:10 Clark Carey MD is Private Physician. as 13:17 Triage completed. la1 13:17 Arm band placed on right wrist. la1 13:20 Noe Hi MD is Attending Physician. rn 13:25 Atilio Little, RN is Primary Nurse. mg2 13:26 Primary Nurse role handed off by Atilio Little, MADELINE sg 13:26 Elvis Vasquez RN is Primary Nurse. sg 13:30 Patient has correct armband on for positive identification. Placed in gown. Bed in low jl7 position. Call light in reach. Side rails up X 1. paper finisher on. Pulse ox on. NIBP on. 13:30 Warm blanket given. jl7 13:48 XRAY Chest (1 view) In Process Unspecified. EDMS 14:30 inside lab contacted for a blood draw assist. Inserted saline lock: 22 gauge in right sg antecubital area, using aseptic technique. 14:32 EKG done, by management technician. reviewed by Noe Hi MD. 3 16:04 Jamison Quarles DO is Hospitalizing Provider. rn 19:10 No provider procedures requiring assistance completed. Patient admitted, IV remains in lp1 place. Administered Medications: No medications were administered Outcome: 16:04 Decision to Hospitalize by Provider. rn 19:15 Condition: stable lp1 19:15 Instructed on the need for admit. 19:21 Admitted to Tele accompanied by tech, via wheelchair, room 403, with chart, Report lp1 called to MADELINE Farley 19:35 Patient left the ED. lp1 Signatures: Dispatcher [employer] EDMS Elvis Vasquez, Claudette Peña RN, Roman, MD MD rn Pena, Laura, RN RN lp1 Eric Crandall RN RN la1 Veda Hein RN RN hb Leal, Jahala, RN RN jl7 Atilio Little RN RN [facility] Estephania Sage 3 Corrections: (The following items were deleted from the chart) 19:15 17:59 Patient left the ED. hb jl7 19:55 19:55 Patient left the ED. lp1 lp1
--- NOTE | 2019-05-30 16:05 | EDPHYS ---
Physician Documentation [facility] Name: Barrett Bird Age: 73 yrs Sex: Female : 1945 Arrival Date: 05/30/2019 Time: 13:10 Bed 8 Private MD: Clark Carey E ED Physician Noe Hi HPI: 05/30 14:20 This 73 yrs old Female presents to ER via Wheelchair with complaints of rn Shortness Of Breath. 14:20 The patient has shortness of breath with light activity. Onset: The symptoms/episode rn began/occurred 1 week(s) ago. Duration: The symptoms are continuous. The patient's shortness of breath is aggravated by exertion, light activity, talking, walking. Severity of symptoms: At their worst the symptoms were moderate in the emergency department the symptoms are unchanged. The patient has experienced a previous episode. The patient has been recently been admitted at [facility]. Reports dyspnea on exertion, weakness, fatigue. Had similar presentation a few weeks ago, admitted for iron deficiency anemia. Had 2 unit transfusion. States felt better, now same symptoms coming back. No previous blood transfusions before last admission. Denies location of bleeding, and had neg w/u including colonoscopy. . Historical: - Allergies: 13:17 Codeine; la1 13:17 GABAPENTIN; la1 13:17 Iodinated Contrast Media - IV Dye; la1 - PMHx: 13:17 "lazy valve"; Anxiety; Arthritis; COPD; Hyperlipidemia; Hypothyroidism; la1 - Immunization history:: Adult Immunizations up to date. - Social history:: Smoking status: Patient/guardian denies using tobacco. - Ebola Screening: : No symptoms or risks identified at this time. - Family history:: not pertinent. - Hospitalizations: : No recent hospitalization is reported. ROS: 14:20 Constitutional: Negative for fever, chills, and weight loss, Eyes: Negative for injury, rn pain, redness, and discharge, Neck: Negative for injury, pain, and swelling, Cardiovascular: Negative for chest pain, palpitations, and edema, Respiratory: Negative for pleuritic chest pain Abdomen/GI: Negative for abdominal pain, nausea, vomiting, diarrhea, and constipation, Back: Negative for injury and pain, : Negative for injury, bleeding, discharge, and swelling, MS/Extremity: Negative for injury and deformity, Skin: Negative for injury, rash, and discoloration, Neuro: Negative for headache, numbness, tingling, and seizure. Exam: 14:20 Constitutional: This is a well developed, well nourished patient who is awake, alert, rn and in no acute distress. Sitting upright, slightly pale. Head/Face: Normocephalic, atraumatic. Eyes: Pupils equal round and reactive to light, extra-ocular motions intact. Lids and lashes normal. Conjunctiva and sclera are non-icteric and not injected. Cornea within normal limits. Periorbital areas with no swelling, redness, or edema. ENT: MMM Cardiovascular: Regular rate and rhythm, + systolic murmur that radiates to back. Respiratory: Clear bilatera breath sounds. No increased work of breathing, no retractions or nasal flaring. Abdomen/GI: Soft, non-tender. No evidence of tenderness throughout. MS/ Extremity: Pulses equal, no cyanosis. Neuro: Awake and alert, GCS 15, oriented to person, place, time, and situation. Cranial nerves II-XII grossly intact. Motor strength 5/5 in all extremities. Sensory grossly intact. 14:41 ECG was reviewed by the Attending Physician. rn Vital Signs: 13:18 BP 100 / 50; Pulse 86; Resp 16; Pulse Ox 98% on R/A; la1 16:30 BP 126 / 72; Pulse 82; Resp 18; Temp 97.9; Pulse Ox 99% on R/A; Pain 0/10; sg 19:15 BP 125 / 70; Pulse 87; Resp 20; Temp 98(O); Pulse Ox 100% on R/A; Pain 0/10; lp1 MDM: 13:20 Patient medically screened. rn 16:02 Differential diagnosis: Anemia Chronic Obstructive Pulmonary Disease. Data reviewed: rn vital signs, nurses notes, lab test result(s), EKG, and as a result, I will admit patient. Counseling: I had a detailed discussion with the patient and/or guardian regarding: the historical points, exam findings, and any diagnostic results supporting the discharge/admit diagnosis, lab results, the need for further work-up and treatment in the hospital. Admission orders: after a detailed discussion of the patient's condition and case, the admit orders are written by me. ED course: Pt back down to hemoglobin 5.7, no active bleeding, will transfuse again given symptomatic, and decrease over last few weeks again. Patient with COPD and then anemia on top of that. . 05/30 13:36 Order name: CBC with Diff; Complete Time: 15:35 rn 05/30 13:36 Order name: Basic Metabolic Panel; Complete Time: 15:35 rn 05/30 13:36 Order name: IV Start; Complete Time: 16:02 rn 05/30 13:36 Order name: XRAY Chest (1 view); Complete Time: 14:07 rn 05/30 13:36 Order name: EKG; Complete Time: 13:37 rn 05/30 15:35 Order name: CBC Smear Scan; Complete Time: 15:35 EDMS 05/30 13:36 Order name: EKG - Nurse/Tech; Complete Time: 16:44 rn EC:41 Rate is 85 beats/min. Rhythm is regular. QRS [place] is Normal. [place] interval is normal. QRS rn interval is normal. QT interval is normal. No Q waves. T waves are Normal. No ST changes noted. Clinical impression: Normal ECG. Interpreted by me. Reviewed by me. Administered Medications: No medications were administered Disposition: 05/30/19 16:04 Hospitalization ordered by Jamison Quarles for Observation. Preliminary diagnosis are Dyspnea, unspecified, Symptomatic anemia, Iron deficiency anemia. - Bed requested for Telemetry/MedSurg (observation). - Status is Observation. lp1 - Condition is Stable. - Problem is an ongoing problem. - Symptoms are unchanged. UTI on Admission? No Signatures: Dispatcher [employer] EDDC Leigh Ann Lee RN RN dw Nieto, Roman, MD MD rn Pena, Laura, RN RN lp1 Eric Crandall RN RN la1 Veda Hein RN RN hb Corrections: (The following items were deleted from the chart) 17:59 16:04 Hospitalization Ordered by Jamison Quarles DO for Observation. Preliminary hb diagnosis is Dyspnea, unspecified; Symptomatic anemia; Iron deficiency anemia. Bed requested for Telemetry/MedSurg (observation). Status is Observation. Condition is Stable. Problem is an ongoing problem. Symptoms are unchanged. UTI on Admission? No. rn 18:30 17:59 05/30/2019 16:04 Hospitalization Ordered by Jamison Quarles DO for Observation. dw Preliminary diagnosis is Dyspnea, unspecified; Symptomatic anemia; Iron deficiency anemia. Bed requested for Telemetry/MedSurg (observation). Status is Observation. Condition is Stable. Problem is an ongoing problem. Symptoms are unchanged. UTI on Admission? No. hb 19:55 18:30 05/30/2019 16:04 Hospitalization Ordered by Jamison Quarles DO for Observation. lp1 Preliminary diagnosis is Dyspnea, unspecified; Symptomatic anemia; Iron deficiency anemia. Bed requested for Telemetry/MedSurg (observation). Status is Observation. Condition is Stable. Problem is an ongoing problem. Symptoms are unchanged. UTI on Admission? No. dw
--- NOTE | 2019-05-30 17:09 | P.HP ---
Certification for Inpatient Patient admitted to: Observation With expected LOS: <2 Midnights Patient will require the following post-hospital care: None Practitioner: I am a practitioner with admitting privileges, knowledge of patient current condition, hospital course, and medical plan of care. Services: Services provided to patient in accordance with Admission requirements found in Title 42 Section 412.3 of the Code of Federal Regulations Patient History Date of Service: 05/30/19 Primary Care Provider: Dr. Carey; Pulmonary-Dr. Loera Reason for admission: Shortness of breath History of Present Illness: 73-year-old female presented to the emergency room with shortness of breath. Patient with history of COPD, iron and B12 deficiency, prior lung cancer with lobectomy, and aortic stenosis. Patient presented to emergency room with increasing shortness of breath. Patient was actually seen about a month ago and admitted for symptomatic anemia. Iron and B12 deficiency was noted. Hemoglobin at that time was 5.7. The received 2 units of packed red blood cells. Hemoglobin improved to 7.4. She was discharged at that time. It was recommended at that time to discontinue aspirin and Celebrex. She was to follow up with her Gi specialist. She had a colonscopy in the past which showed colon polyps. She has not had any EGD. Today the shortness of breath worsened. It would happen at rest and with exertion. She was also very tired. She denied any fever, chills, coughing up of blood. She denied any hemoptysis or melena. Denied any nausea, vomiting. In the ER vital signs were stable. She did appear pale. Hemoglobin 5.7. White count 13.2, platelet count of 409. Sodium 134, potassium 4.2, BUN 23, creatinine 0.89 with a GFR 62. Chest x-ray unremarkable. Patient admitted for further evaluation and treatment. When I saw the patient in the ER, she was without any significant shortness of breath. Room-air saturations within normal range. Allergies Codeine Allergy (Uncoded 07/18/17 13:06) Unknown Home medications list reviewed: Yes Home Medications: Amiloride/Hydrochlorothiazide [Amiloride HCl-Hctz 5-50 mg Tab] 1 each PO DAILY 07/18/17 Biotin 5,000 mcg PO DAILY 07/18/17 Butalb/Acetaminophen/Caffeine [Esgic 50-325-40 mg Tablet] 1 each PO BEDTIME Cyclobenzaprine [Flexeril*] 10 mg PO BID 07/18/17 Diphenhydramine [Benadryl*] 25 mg PO BEDTIME PRN 07/18/17 Docosahexanoic AC/Epa [Fish Oil 1,000 MG*] 1,000 mg PO DAILY AT SUPPER 07/18/17 Estradiol [Estrace] 1 mg PO DAILY AT SUPPER 07/18/17 Ferrous Sulfate [Iron] 325 mg PO TID 07/18/17 Fluticasone [Flonase 50MCG Nasal [place]*] 2 sprays NS DAILY 07/18/17 Levothyroxine Sodium [Synthroid] 175 mcg PO DAILY 07/18/17 Loratadine [Claritin*] 10 mg PO DAILY 07/18/17 Metoprolol Succinate [Toprol Xl*] 100 mg PO [id number] 07/18/17 Psyllium [Metamucil (Hydrocil)*] 1 pkt PO DAILY 07/18/17 Simvastatin [Zocor] 10 mg PO TID 07/18/17 Tramadol HCl [Tramadol HCl ER] 300 mg PO DAILY 07/18/17 Vitamin E 1,000 unit PO DAILY 07/18/17 diazePAM [Valium*] 5 mg PO QID 07/18/17 Apremilast [Otezla] 30 mg PO BID 05/07/19 Folic Acid 0.4 mg PO DAILY 30 Days #30 tablet 05/08/19 - Past Medical/Surgical History Diabetic: No -: Remote history of lung cancer status post resection -: Moderate aortic stenosis -: Chronic iron and B12 deficiency anemia -: COPD -: History of Laparotomy -: Appendectomy -: Right lobectomy for lung cancer -: Total hysterectomy Psychosocial/ Personal History: Patient lives at home. - Family History Father -: Heart disease, Blood disorders Mother -: Lung disease - Social History Smoking Status: Former smoker Alcohol use: No CD- Drugs: No Caffeine use: Yes Place of Residence: Home Review of Systems General: Weakness, Malaise, As per HPI Eyes: Unremarkable ENT: Unremarkable Respiratory: Shortness of Breath, SOB with Excertion, As per HPI Cardiovascular: Unremarkable Gastrointestinal: Unremarkable Genitourinary: Unremarkable Musculoskeletal: Unremarkable Integumentary: Unremarkable Neurological: Weakness, As per HPI Lymphatics: Unremarkable Physical Examination - Physical Exam General: Alert, In no apparent distress, Oriented x3, Cooperative, Other ( Patient appears pale) HEENT: Atraumatic, Normocephalic, Mucous membr. moist/pink Neck: Supple, No Thyromegaly Respiratory: Clear to auscultation bilaterally, Normal air movement Cardiovascular: Normal pulses, Regular rate/rhythm Gastrointestinal: Normal bowel sounds, Soft and benign, Non-distended, No ascites, No tenderness, No masses, No rebound, No guarding Musculoskeletal: No erythema, No tenderness, No warmth Integumentary: No tenderness/swelling, No erythema, No warmth, No cyanosis Neurological: Normal speech, Normal strength at 5/5 x4 extr, Normal tone, Normal affect - Studies Laboratory Data (last 24 hrs) 05/30/19 14:57: Sodium 134 L, Potassium 4.2, BUN 23 H, Creatinine 0.89, Glucose 114 H 05/30/19 14:57: WBC 13.2 H, Hgb 5.7 L*, Hct 18.7 L*, Plt Count 409 H Assessment and Plan - Plan Impression Shortness of breath secondary to acute on chronic anemia with iron and B12 deficiency COPD GERD Moderate aortic stenosis History of lung cancer status post lobectomy Plan: Shortness of breath secondary to acute on chronic anemia with iron and B12 deficiency: Patient will be admitted for further evaluation and treatment. Will transfuse 2 units of packed red blood cells. Will provide Lasix after each unit. Will maintain hemoglobin above 7.5. Will monitor closely. Recheck hemoglobin after transfusion. Anticipate discharge tomorrow if clinically stable. Case discussed with her GI specialist. If stable for discharge will plan for EGD on Sunday as an outpatient. Patient has had colonoscopy in the past showing colon polyps. No active GI bleeding at this time. Will send peripheral smear to further evaluate. Patient likely requires IV iron and IM B12 injections in the future. Will continue to monitor closely. DVT prophylaxis-SCD. Anticipate discharge tomorrow. COPD: Continue with her COPD medication. GERD: Will provide PPI. Moderate aortic stenosis: Will provide Lasix after each unit of blood. Will recommend cardiology evaluation as an outpatient to further monitor and address. History of lung cancer status post lobectomy: This is currently stable this time. Case discussed with her hand model. Discharge Plan: Home Plan to discharge in: 24 Hours - Advance Directives Does patient have a Living Will: No Does patient have a Durable POA for Healthcare: No - Code Status/Comfort Care Code Status Assessed: Yes (Patient is full code) Time Spent Managing Pts Care (In Minutes): 55
[2019-05-30] MEDS ORDERED: IPRATROPIUM BROM 0.5MG/2.5ML NEB PRN (19:54)
[2019-05-30] MEDS ORDERED: CYANOCOBALAMIN 1000MCG/ML INJ IM ONE (19:54)
[2019-05-30] MEDS ORDERED: ONDANSETRON 4 MG/2 ML VIAL IV PRN (19:54)
[2019-05-30] MEDS ORDERED: ACETAMINOPHEN 500 MG TAB PO PRN (19:54)
[2019-05-30] MEDS ORDERED: ALBUTEROL 2.5 MG/3 ML NEB SOL NEB PRN (19:54)
[2019-05-30] MEDS ORDERED: ARFORMOTEROL TARTRATE 15 MCG/2 ML VIAL.NEB NEB SCH (20:00)
[2019-05-30] MEDS ORDERED: NA CHLORIDE 0.9% 250 ML ONE (21:53)
[2019-05-30 22:53] LABS: Urine Appearance CLEAR; Urine Bilirubin NEGATIVE (NEG); Urine Blood NEGATIVE (NEG); Urine Color YELLOW; Urine Glucose NEGATIVE (NEG); Urine Protein NEGATIVE (NEG); Urine Urobilinogen 0.2 mg/dL (0.2-1.0)
[2019-05-30 23:01] LABS: Urine Microscopic Reflex NO UMIC
[2019-05-31] MEDS: LEVALBUTEROL 1.25 MG/3 ML NEB NEB SCH ×3 (01:21→14:00)
[2019-05-31] MEDS ORDERED: ALBUTEROL 2.5 MG/3 ML NEB SOL NEB SCH (02:00)
[2019-05-31 02:56] VITALS: BMI 31.1
[2019-05-31] MEDS ORDERED: NA CHLORIDE 0.9% 250 ML ONE (04:51)
[2019-05-31] MEDS: FUROSEMIDE 20 MG/ 2ML VIAL IV PRN ×2 (06:24→08:14)
[2019-05-31] MEDS ORDERED: PANTOPRAZOLE 40MG TABLET PO SCH (06:30)
[2019-05-31 07:01] LABS: Magnesium 1.9 mg/dL (1.8-2.4); Potassium 3.3 mmol/L (3.5-5.1)
[2019-05-31 07:08] LABS: Absolute Lymphocytes (CBC) 1.9 K/uL (0.7-4.9); Hematocrit 21.2 % (36.0-45.0); MPV 8.6 fL (7.6-11.3); RBC Red Blood Cell Count 2.59 M/uL (3.86-4.86)
[2019-05-31] MEDS ORDERED: CYANOCOBALAMIN 1,000 MCG TAB PO SCH (09:00)
--- NOTE | 2019-05-31 10:16 | P.DS ---
Admission Date: 05/30/19 Discharge Date: 05/31/19 Primary Care Provider: Dr. Carey; Pulmonary-Dr. Loera Disposition: ROUTINE DISCHARGE Discharge Condition: GOOD Reason for Admission: Shortness of breath Consultations: none Procedures: CXR: COMPARISON: May 07, 2019 FINDINGS: Lungs are mildly hyperaerated. The lungs appear clear of acute infiltrate. The heart is normal size IMPRESSION: No acute abnormalities displayed Previous ECHO: EF 68% LEFT VENTRICULAR WALL MOTION: NORMAL. DOPPLER/COLOR FLOW: MODERATE AORTIC STENOSIS. PEAK/MEAN GRADIENT 48/28mmHg. ESTIMATED AORTIC VALVE AREA 1.0 CENTIMETERS SQUARED. MILD AORTIC REGURGITATION. COMMENTS: NORMAL LEFT VENTRICULAR EJECTION FRACTION. LEFT VENTRICULAR HYPERTROPHY. MODERATE AORTIC STENOSIS. MILD AORTIC REGURGITATION Medical Problem List: Shortness of breath secondary to acute on chronic anemia with iron and B12 deficiency COPD GERD Moderate aortic stenosis History of lung cancer status post lobectomy HTN Chronic pain Brief History of Present Illness: 73-year-old female presented to the emergency room with shortness of breath. Patient with history of COPD, iron and B12 deficiency, prior lung cancer with lobectomy, and aortic stenosis. Patient presented to emergency room with increasing shortness of breath. Patient was actually seen about a month ago and admitted for symptomatic anemia. Iron and B12 deficiency was noted. Hemoglobin at that time was 5.7. The received 2 units of packed red blood cells. Hemoglobin improved to 7.4. She was discharged at that time. It was recommended at that time to discontinue aspirin and Celebrex. She was to follow up with her Gi specialist. She had a colonscopy in the past which showed colon polyps. She has not had any EGD. Today the shortness of breath worsened. It would happen at rest and with exertion. She was also very tired. She denied any fever, chills, coughing up of blood. She denied any hemoptysis or melena. Denied any nausea, vomiting. In the ER vital signs were stable. She did appear pale. Hemoglobin 5.7. White count 13.2, platelet count of 409. Sodium 134, potassium 4.2, BUN 23, creatinine 0.89 with a GFR 62. Chest x-ray unremarkable. Patient admitted for further evaluation and treatment. When I saw the patient in the ER, she was without any significant shortness of breath. Room-air saturations within normal range. Hospital Course: Patient presented with shortness of breath. Patient with history of acute on chronic anemia with iron and B12 deficiency. Patient was hospitalized 1 month ago and required transfusion. Initial hemoglobin 5.7. Patient was admitted and given 2 units of packed red blood cells. Case discussed with GI. Hemoglobin now 7.7. Patient currently stable at this time for discharge. At discharge she will continue with iron supplementation 3 times a day, folic acid 1 mg daily and B12 supplementation once daily. Patient has had colonoscopy in the past. Will recommend follow up with GI on Sunday for EGD. Case discussed with her GI specialist. Patient will complete GI workup. If unremarkable patient may require Hematology evaluation and workup. Other consideration would include need for IV iron in the future. Recommend to recheck CBC, iron and B12 level in 2-4 weeks to monitor her progress. Patient likely with GERD. At discharge she will continue with Protonix 40 mg daily. Patient will follow up with GI on Sunday for possible GI intervention- EGD and further workup. Patient with moderate aortic stenosis. Previous echocardiogram reviewed. Will recommend follow up with cardiology as an outpatient to further monitor and address. Recommend 1500 cc per day fluid restriction. Patient may require diuretic therapy in the future. Patient with history of lung cancer status post lobectomy. Case discussed with her wardrobe attendant. Currently stable at this time. Patient with COPD. Patient will continue with COPD medication and follow up with pulmonology as directed. Patient with history of hypertension. Will need to verify home medication prior to discharge. May need to hold blood pressure medication at home if blood pressure less than 120 systolic. Further adjustment in medication can be done by her PCP Vital Signs/Physical Exam: Temp Pulse Resp BP Pulse Ox 97.6 F 88 18 118/47 L 100 05/31/19 08:00 05/31/19 08:14 05/31/19 08:00 05/31/19 08:14 05/31/19 08:00 General: Alert, In no apparent distress, Oriented x3, Cooperative HEENT: Atraumatic Neck: Supple Respiratory: Clear to auscultation bilaterally, Normal air movement Cardiovascular: Normal pulses, Regular rate/rhythm Gastrointestinal: Normal bowel sounds, Soft and benign, Non-distended, No tenderness, No masses, No rebound, No guarding Musculoskeletal: No erythema, No tenderness, No warmth Integumentary: No tenderness/swelling, No erythema, No warmth, No cyanosis Neurological: Normal speech, Normal strength at 5/5 x4 extr, Normal tone, Normal affect Laboratory Data at Discharge: WBC 11.3 K/uL (4.3-10.9) H D 05/31/19 05:15 Hgb 7.7 g/dL (12.0-15.0) L* 05/31/19 09:30 Hct 24.0 % (36.0-45.0) L 05/31/19 09:30 Plt Count 366 K/uL (152-406) 05/31/19 05:15 Sodium 135 mmol/L (136-145) L 05/31/19 05:15 Potassium 3.3 mmol/L (3.5-5.1) L 05/31/19 05:15 BUN 19 mg/dL (7-18) H 05/31/19 05:15 Creatinine 0.78 mg/dL (0.55-1.3) 05/31/19 05:15 Glucose 114 mg/dL (74-106) H 05/31/19 05:15 Magnesium 1.9 mg/dL (1.8-2.4) 05/31/19 05:15 Home Medications: Amiloride/Hydrochlorothiazide [Amiloride HCl-Hctz 5-50 mg Tab] 1 each PO DAILY 07/18/17 Biotin 5,000 mcg PO DAILY 07/18/17 Butalb/Acetaminophen/Caffeine [Esgic 50-325-40 mg Tablet] 1 each PO BEDTIME Cyclobenzaprine [Flexeril*] 10 mg PO BID 07/18/17 Diphenhydramine [Benadryl*] 25 mg PO BEDTIME PRN 07/18/17 Docosahexanoic AC/Epa [Fish Oil 1,000 MG*] 1,000 mg PO DAILY AT SUPPER 07/18/17 Estradiol [Estrace] 1 mg PO DAILY AT SUPPER 07/18/17 Fluticasone [Flonase 50MCG Nasal [place]*] 2 sprays NS DAILY 07/18/17 Levothyroxine Sodium [Synthroid] 175 mcg PO DAILY 07/18/17 Loratadine [Claritin*] 10 mg PO DAILY 07/18/17 Metoprolol Succinate [Toprol Xl*] 100 mg PO [id number] 07/18/17 Psyllium [Metamucil (Hydrocil)*] 1 pkt PO DAILY 07/18/17 Simvastatin [Zocor] 10 mg PO TID 07/18/17 Tramadol HCl [Tramadol HCl ER] 300 mg PO DAILY 07/18/17 Vitamin E 1,000 unit PO DAILY 07/18/17 diazePAM [Valium*] 5 mg PO QID 07/18/17 Apremilast [Otezla] 30 mg PO BID 05/07/19 Cyanocobalamin [Vitamin B-12*] 1,000 mcg PO DAILY #90 tab 05/31/19 Ferrous Sulfate [Iron] 325 mg PO TID #90 tablet 05/31/19 Folic Acid 0.4 mg PO DAILY #90 tablet 05/31/19 Pantoprazole [Protonix Tab*] 40 mg PO DAILYAC #30 tab 05/31/19 New Medications: Cyanocobalamin [Vitamin B-12*] 1,000 mcg PO DAILY #90 tab Ferrous Sulfate [Iron] 325 mg PO TID #90 tablet Folic Acid 0.4 mg PO DAILY #90 tablet Pantoprazole [Protonix Tab*] 40 mg PO DAILYAC #30 tab Patient Discharge Instructions: 1. Recommend follow up with her PCP in 1-2 weeks to follow up this hospitalization. 2. Patient presented with shortness of breath. Patient with history of acute on chronic anemia with iron and B12 deficiency. Patient was hospitalized 1 month ago and required transfusion. Initial hemoglobin 5.7. Patient was admitted and given 2 units of packed red blood cells. Case discussed with GI. Hemoglobin now 7.7. Patient currently stable at this time for discharge. At discharge she will continue with iron supplementation 3 times a day, folic acid 1 mg daily and B12 supplementation once daily. Patient has had colonoscopy in the past. Will recommend follow up with GI on Sunday for EGD. Case discussed with her GI specialist. Patient will complete GI workup. If unremarkable patient may require Hematology evaluation and workup. Other consideration would include need for IV iron in the future. Recommend to recheck CBC, iron and B12 level in 2-4 weeks to monitor her progress. 3. Patient likely with GERD. At discharge she will continue with Protonix 40 mg daily. Patient will follow up with GI on Sunday for possible GI intervention-EGD and further workup. 4. Patient with moderate aortic stenosis. Previous echocardiogram reviewed. Will recommend follow up with cardiology as an outpatient to further monitor and address. Recommend 1500 cc per day fluid restriction. Patient may require diuretic therapy in the future. 5. Patient with history of lung cancer status post lobectomy. Case discussed with her wardrobe attendant. Currently stable at this time. Patient with COPD. Patient will continue with COPD medication and follow up with pulmonology as directed. 6. Patient with history of hypertension. Will need to verify home medication prior to discharge. May need to hold blood pressure medication at home if blood pressure less than 120 systolic. Further adjustment in medication can be done by her PCP Diet: AHA Activity: Ad tee Time spent managing pt's care (in minutes): 55
[2019-05-31 10:24] LABS: Anisocytosis 2+; Blood Morphology Comment NOTED (NOT SEEN); Hypochromasia 2+; Platelet Estimate ADEQ; Polychromasia 1+; Stomatocytes 1+; Teardrop Cell 1+; Urine White Blood Cell Casts OK
[2019-05-31 10:25] LABS: Basophilic Stippling 1+
[2019-05-31 12:06] VITALS: BP 119/60; TEMP 97.7
[2019-05-31] MEDS ORDERED: INFLUENZA VACCINE (for 3y+) 0.5 ML DOSE IMVAC ONE (13:00)
[2019-05-31 14:11] VITALS: O2SAT 98
== END 2019-05-31 14:07 | disposition home or self-care (01) ==
LOC: ER 13:08 → ERHOLD 16:45 → 4TH 19:30
PROVIDERS: ADMIT Family Medicine; ATTEND Family Medicine
DX: D50.9 Iron deficiency anemia, unspecified (principal); D51.9 Vitamin B12 deficiency anemia, unspecified; J44.9 Chronic obstructive pulmonary disease, unspecified; I35.0 Nonrheumatic aortic (valve) stenosis; K21.9 Gastro-esophageal reflux disease without esophagitis
CPT/HCPCS: 93005; 85025 ×2; 80048 ×2; 36415 ×2; 86900; 83735; 86850; 86901; 85018; 85014; 81003; 82607; 86922 ×2; 71045; 99285; J1940 ×2; J3420; G0378 ×2; P9016 ×2; J7030 ×2; J7605

== ENCOUNTER 2021-10-03 12:22 | Day surgery (SDC) | payer OTHER ==
[2021-09-30 12:44] LABS: Absolute Lymphocytes (CBC) 0.8 K/uL (0.7-4.9); Hematocrit 30.7 % (36.0-45.0); Lymphocytes % 8.6 % (15.3-44.8); MPV 8.8 fL (7.6-11.3); RBC Red Blood Cell Count 2.99 M/uL (3.86-4.86)
[2021-09-30 12:49] LABS: Protime INR 0.95
[2021-09-30 13:00] LABS: BUN Blood Urea Nitrogen 21 mg/dL (7-18); Bicarbonate 29 mmol/L (21-32); Glucose Level 171 mg/dL (74-106); Potassium 3.9 mmol/L (3.5-5.1); Sodium Level 136 mmol/L (136-145)
--- NOTE | 2021-09-30 13:00 | RAD REPORT ---
EXAM DESCRIPTION: Claire Pa And Lat (2 Views)09/30/2021 12:36 pm CLINICAL HISTORY: Preop for cardiac catheterization. Lung nodules COMPARISON: July 2021 FINDINGS: The lungs are moderately hyperaerated. The patient's known lung nodules are likely present but not well visualized on the chest x-ray. Heart is mildly enlarged
[~2021-10-03 12:22] MED LIST: HEPA 1000U/500MLS 2,000 UNIT/1,000 ML BAG IV ONE; LIDOCAINE 1% 20 ML MDV ONE
[2021-10-03] MEDS ORDERED: NA CHLORIDE 0.9% 500 ML ONE (12:23)
[2021-10-03] MEDS ORDERED: CLOPIDOGREL 75 MG TABLET ONE (13:25)
[2021-10-03] MEDS ORDERED: VERAPAMIL HCL 10 MG/4 ML VIAL IV ONE (13:25)
[2021-10-03] MEDS ORDERED: MIDAZOLAM HCL 2 MG/2 ML INJ ONE (13:25)
[2021-10-03] MEDS ORDERED: HEPARIN 5000 UNIT/ML 1 ML VIAL ONE (13:25)
[2021-10-03] MEDS ORDERED: ASPIRIN 325 MG TAB ONE (13:25)
[2021-10-03] MEDS ORDERED: FENTANYL CITR 100 MCG/2 ML ONE (13:25)
[2021-10-03] MEDS ORDERED: ATROPINE SULF 1 MG/10 ML SYR IV ONE (13:26)
[2021-10-03] MEDS ORDERED: TICAGRELOR 90 MG TABLET PO ONE (13:26)
[2021-10-03] MEDS ORDERED: HEPA 1000U/500MLS 2,000 UNIT/1,000 ML BAG IV ONE (13:27)
[2021-10-03] MEDS ORDERED: DIPHENHYDRAMINE 50 MG/ML VIAL ONE (13:49)
[2021-10-03] MEDS ORDERED: METHYLPREDNISOLONE 125 MG INJ ONE (13:49)
[2021-10-03 17:41] VITALS: BP 105/76; O2SAT 97
--- NOTE | 2021-10-04 00:26 | OP ---
Date of Procedure: 10/03/2021 Surgeon: ETHEL GARG Procedure Performed: Selective coronary angiogram. Indication: Severe aortic valve stenosis before TAVR. Access: Right radial artery 6-[place]uneian closed with TR band. Complications: None. Bleeding: Less than 10 mL. Sedation: None due to low blood pressures. Description Of Procedure: After risks, benefits, and alternatives were explained, patient agreed to proceed and signed informed consent. The patient was brought into the cardiac catheterization labora tory, prepped and draped in usual sterile fashion. Then, I accessed right radial artery using pediat jesenia micropuncture kit and then placed a 6-[place]uneian slender sheath and took a 5-[place]uneian tiger 4.0 cathete r in the aortic root, engaged left main, right coronary artery, took standard views and then removed the catheter and sheath, placed TR band with good hemostasis. Findings: 1.Left main is normal. 2.LAD, moderate size, normal; normal diagonal branches. 3.Left circumflex, it is moderate in size and normal. 4.RCA is dominant, moderate in size and normal. Conclusion: Normal coronary arteries. Plan: Proceed with TAVR as planned. /MODL Voice ID: [id number] Report ID: [id number]
== END 2021-10-03 17:52 | disposition home or self-care (01) ==
LOC: CCL 12:22
PROVIDERS: ATTEND Internal Medicine
DX: I35.2 Nonrheumatic aortic (valve) stenosis with insufficiency (principal); I10 Essential (primary) hypertension; E78.5 Hyperlipidemia, unspecified; Z87.891 Personal history of nicotine dependence; Z79.82 Long term (current) use of aspirin; Z79.899 Other long term (current) drug therapy; Z88.6 Allergy status to analgesic agent; Z88.8 Allergy status to other drugs, medicaments and biological substances; Z91.013 Allergy to seafood; Z20.822 Contact with and (suspected) exposure to COVID-19
CPT/HCPCS: 85025; 80048; 36415; 85610; 85730; 71046; 93454; U0003; C1893; J1200; J1644 ×3; J3010; J7040; J2930; J2250